=== PATIENT | female | born 1970 | race Caucasian/White ===

== ENCOUNTER 2016-12-19 17:46 | Emergency (ER) | payer OTHER, MEDICAID ==
[~2016-12-19] VITALS: Ht 154.9 cm; Wt 78.0 kg
[2016-12-20 00:07] VITALS: BP 132/82
== END 2016-12-20 00:17 | disposition home or self-care (01) ==
LOC: ER 17:47
DX: B35.3 Tinea pedis (principal); E11.9 Type 2 diabetes mellitus without complications; I10 Essential (primary) hypertension; Z88.0 Allergy status to penicillin; Z98.890 Other specified postprocedural states
CPT/HCPCS: 82962; 99283

== ENCOUNTER 2024-02-05 12:48 | Emergency (ER) | payer MEDICAID, OTHER ==
[~2024-02-05] VITALS: Ht 162.6 cm; Wt 80.0 kg
[2024-02-05 12:49] VITALS: O2SAT 99
[2024-02-05] MEDS: HYDRALAZINE 20MG/ML VIAL IV ONE (14:41)
[2024-02-05] MEDS: ONDANSETRON HCL 4MG/2ML INJ IV ONE (14:43)
[2024-02-05] MEDS: NIFEDIPINE XL 60MG TAB PO ONE (14:50)
[2024-02-05 14:52] LABS: CHLORIDE 98 mEq/L (98-107); POTASSIUM 5.8 mEq/L (3.5-5.1); SODIUM 134 mEq/L (136-145)
[2024-02-05 14:54] LABS: CALCIUM 9.5 mg/dL (8.7-10.4); CARBON DIOXIDE 27 mEq/L (21-32)
[2024-02-05 14:59] LABS: GLUCOSE 84 mg/dL (70-105); TROPONIN I HIGH SENSITIVITY 9 ng/L (3.0-34); UREA NITROGEN BLOOD 45 mg/dL (9-23)
[2024-02-05 15:00] LABS: PROTHROMBIN TIME 11.1 sec (9.6-11.0)
[2024-02-05 15:08] LABS: BASOPHILS % 0.6 % (0.0-2.0); EOSINOPHILS % 2.1 % (0.0-5.0); HEMATOCRIT. 32.8 % (36.0-48.0); HEMOGLOBIN. 10.9 g/dL (12.0-16.0); LYMPHOCYTES % 16.2 % (20.0-50.0); MEAN CORPUSCULAR HEMOGLOBIN 31.6 pg (28.0-32.0); MEAN CORPUSCULAR HGB CONC 33.3 g/dL (31.0-37.0); MEAN CORPUSCULAR VOLUME 94.9 fL (81.0-99.0); MEAN PLATELET VOLUME 9.3 fl (7.4-10.4); MONOCYTES % 6.9 % (2.0-8.0); NEUTROPHILS % 74.2 % (40.0-76.0); PLATELET 252 x1000/uL (130-400); RED BLOOD CELL COUNT 3.46 mill/uL (4.2-5.4); RED CELL DISTRIBUTION WIDTH 15.5 % (11.6-14.6); WHITE BLOOD COUNT 8.9 x1000/uL (4.5-11.0)
[2024-02-05] MEDS: SODIUM ZIRCONIUM CYCLOSILICATE 10GM/PACKET PO NR (16:47)
[2024-02-05 18:58] VITALS: BP 138/71; PULSE 75; RESP 12; TEMP 36.94740; O2SAT 99
== END 2024-02-05 19:01 | disposition home or self-care (01) ==
LOC: ER 12:48 → EDBEDREQ 18:29 → ER 19:01
DX: I16.9 Hypertensive crisis, unspecified (principal); E11.22 Type 2 diabetes mellitus with diabetic chronic kidney disease; I12.0 Hypertensive chronic kidney disease with stage 5 chronic kidney disease or end stage renal disease; N18.6 End stage renal disease; E11.65 Type 2 diabetes mellitus with hyperglycemia; Z99.2 Dependence on renal dialysis; Z88.0 Allergy status to penicillin
CPT/HCPCS: 80048; 83880; 85025; 85610; 84484; 36415; 71045; 70450; 74176; 93005; 96374; 96375; 99291; Z7610 ×4; J0360; J2405

== ENCOUNTER 2024-11-20 00:13 | Inpatient (IN) | payer MEDICAID ==
[~2024-11-20] VITALS: Ht 154.9 cm; Wt 77.6 kg
[2024-11-20] VITALS (13 sets, daily range): BP systolic 145–172; BP diastolic 71–91; PULSE 79–93; RESP 14–20; TEMP 36.4–36.7; O2SAT 96–100
[2024-11-20 01:08] LABS: BASOPHILS % 0.8 % (0.0-2.0); EOSINOPHILS % 2.6 % (0.0-5.0); HEMATOCRIT. 31.3 % (36.0-48.0); HEMOGLOBIN. 10.4 g/dL (12.0-16.0); LYMPHOCYTES % 14.8 % (20.0-50.0); MEAN CORPUSCULAR HEMOGLOBIN 30.6 pg (28.0-32.0); MEAN CORPUSCULAR HGB CONC 33.3 g/dL (31.0-37.0); MEAN CORPUSCULAR VOLUME 91.9 fL (81.0-99.0); MEAN PLATELET VOLUME 9.2 fl (7.4-10.4); MONOCYTES % 7.1 % (2.0-8.0); NEUTROPHILS % 74.7 % (40.0-76.0); PLATELET 233 x1000/uL (130-400); RED BLOOD CELL COUNT 3.41 mill/uL (4.2-5.4); RED CELL DISTRIBUTION WIDTH 14.8 % (11.6-14.6); WHITE BLOOD COUNT 8.5 x1000/uL (4.5-11.0)
[2024-11-20 01:19] LABS: CHLORIDE 94 mEq/L (98-107); SODIUM 133 mEq/L (136-145)
[2024-11-20 01:20] LABS: CARBON DIOXIDE 25 mEq/L (21-32)
[2024-11-20 01:25] LABS: GLUCOSE 213 mg/dL (70-105); UREA NITROGEN BLOOD 67 mg/dL (9-23)
[2024-11-20 01:27] LABS: ALANINE AMINOTRANSFERASE 15 IU/L (10-49); ALBUMIN 4.4 g/dL (3.2-4.8); ASPARTATE AMINOTRANSFERASE 18 IU/L (<34); BILIRUBIN DIRECT < 0.1 mg/dL (<=3.0); BILIRUBIN TOTAL < 0.2 mg/dL (0.1-1.0); PROTEIN TOTAL 7.7 g/dL (6.0-8.3)
[2024-11-20 01:30] LABS: POTASSIUM 6.5 mEq/L (3.5-5.1)
[2024-11-20 01:31] LABS: CREATININE 11.8 mg/dL (0.6-1.0)
[2024-11-20] MEDS: MAGNESIUM/ALUMINUM HYDROXIDE/SIMETHICONE 30ML UDC PO ONE (01:41)
[2024-11-20] MEDS: VISCOUS LIDOCAINE 2% 15 ML UDC MM ONE (01:42)
[2024-11-20] MEDS: ACETAMINOPHEN 325MG TABLET PO ONE (01:46)
[2024-11-20] MEDS: CALCIUM GLUCONATE 100MG/ML 10ML VIAL IV ONE (02:45)
[2024-11-20 04:06] LABS: TROPONIN I HIGH SENSITIVITY 12 ng/L (3.0-34)
[2024-11-20] MEDS: DEXTROSE 50% WATER 50ML SYRINGE IV ONE (04:34)
[2024-11-20] MEDS: INSULIN REGULAR (HUMULIN R) 1000UNITS/10ML VIAL IV ONE (04:49)
[2024-11-20] MEDS: FUROSEMIDE 100MG/10ML VIAL IV STA (04:49)
[2024-11-20] MEDS: SODIUM BICARBONATE 8.4% 50MEQ/50ML SYR IV ONE (04:52)
[2024-11-20] MEDS: SODIUM ZIRCONIUM CYCLOSILICATE 10GM/PACKET PO ONE (05:01)
[2024-11-20] MEDS ORDERED: DEXTROSE 50% WATER 50ML SYRINGE IV PRN (07:00)
[2024-11-20] MEDS: SEVELAMER CARBONATE 800 MG TABLET PO SCH (07:15)
[2024-11-20] MEDS ORDERED: INSU100I13 SUBCUT (07:15)
[2024-11-20] MEDS: INSULIN LISPRO 100 UNITS/ML SUBCUT SCH (07:15)
[2024-11-20] MEDS ORDERED: HYDR100T31 PO (07:15)
[2024-11-20] MEDS ORDERED: NIFE-72 PO (07:15)
[2024-11-20] MEDS ORDERED: SEVE800T25 PO (07:15)
[2024-11-20] MEDS ORDERED: INSU100I28 SUBCUT (07:15)
[2024-11-20] MEDS: BLOOD SUGAR DIAGNOSTIC STRIP TEST SCH (07:21)
[2024-11-20] MEDS: NIFEDIPINE XL 60MG TAB PO SCH (09:00)
[2024-11-20] MEDS: LABETALOL HCL 200MG TABLET PO SCH (09:00)
[2024-11-20] MEDS: FOLIC ACID/VITAMIN B COMP W-C TABLET PO SCH (09:00)
[2024-11-20] MEDS: INSULIN GLARGINE 100 UNITS/ML SUBCUT SCH (10:00)
[2024-11-20] MEDS ORDERED: BLOOD SUGAR DIAGNOSTIC STRIP TEST SCH (11:45)
[2024-11-20 13:32] LABS: HEPATITIS B SURFACE ANTIGEN NEGATIVE (Negative)
[2024-11-20 13:53] LABS: HEPATITIS A AB IGM NEGATIVE (Negative); HEPATITIS B CORE AB IGM NEGATIVE (Negative)
[2024-11-20 13:54] LABS: HEPATITIS C AB NON REACTIVE (Neg) (Negative)
[2024-11-20] MEDS ORDERED: ATORVASTATIN CALCIUM 40MG TABLET PO SCH (21:00)
== END 2024-11-20 14:26 | disposition left against medical advice (07) | DRG 425 ==
LOC: ER 00:13 → 5WST 03:25 → EDBEDREQ 03:30 → EDBEDREQTM 03:30 → ENRESERV 04:25
PROVIDERS: ADMIT Internal Medicine; ATTEND Internal Medicine
PROC: 5A1D70Z Performance of Urinary Filtration, Intermittent, Less than 6 Hours Per Day (ICD-10-PCS; principal; 2024-11-20)
DX: E87.5 Hyperkalemia (principal); I12.0 Hypertensive chronic kidney disease with stage 5 chronic kidney disease or end stage renal disease; E11.22 Type 2 diabetes mellitus with diabetic chronic kidney disease; K80.10 Calculus of gallbladder with chronic cholecystitis without obstruction; D64.9 Anemia, unspecified; E78.00 Pure hypercholesterolemia, unspecified; N18.6 End stage renal disease; Z88.0 Allergy status to penicillin; Z99.2 Dependence on renal dialysis; Z91.158 Patient's noncompliance with renal dialysis for other reason; Z79.4 Long term (current) use of insulin
CPT/HCPCS: 36415; 76705; 80048; 80076; 82962; 83036; 84484; 85025; 86705; 86709; 87340; 90935; 93005; 99285; J0610; J1815; J1940; J3490

== ENCOUNTER 2025-04-14 19:40 | Emergency (ER) | payer MEDICAID ==
[~2025-04-14] VITALS: Ht 154.9 cm; Wt 80.0 kg
[~2025-04-14 19:40] MED LIST: HYDR100T31 PO; INSU100I13 SUBCUT; INSU100I28 SUBCUT; NIFE-72 PO; SEVE800T25 PO
[2025-04-14 19:51] VITALS: TEMP 36.9; O2SAT 100
[2025-04-14 21:44] VITALS: BP 184/91; PULSE 87; RESP 11; O2SAT 97
== END 2025-04-14 21:52 | disposition home or self-care (01) ==
LOC: ER 19:40
DX: T82.838A Hemorrhage due to vascular prosthetic devices, implants and grafts, initial encounter (principal); E11.9 Type 2 diabetes mellitus without complications; E78.00 Pure hypercholesterolemia, unspecified; I10 Essential (primary) hypertension; Z79.899 Other long term (current) drug therapy; Z88.0 Allergy status to penicillin; X58.XXXA Exposure to other specified factors, initial encounter; Y93.89 Activity, other specified; Y92.89 Other specified places as the place of occurrence of the external cause; Y99.8 Other external cause status
CPT/HCPCS: 99282